=== PATIENT | male | born 1985 | race Caucasian/White ===

== ENCOUNTER → 2025-02-02 14:41 | Outpatient (CLI) | payer OTHER, SELFPAY ==
--- NOTE | 2025-02-02 14:44 | DI.RAD.S_ITS ---
PROCEDURE: XR LUMBAR SPINE MIN 4V INDICATIONS: BACK PAIN TECHNIQUE: 5 views of the lumbar spine were acquired, including bilateral oblique views. COMPARISON: None. FINDINGS: Bones: 5 nonrib-bearing vertebrae are present. Degenerative endplate changes and slight loss of disc height at L4-5 and L5-S1 levels are seen. There is normal bony alignment. No vertebral body compression fractures. No suspicious bony lesions. Soft tissues: Overlying bowel gas pattern is normal. No suspicious soft tissue calcifications. Oblique images: No pars defects. No significant bony foraminal stenosis is seen. IMPRESSION: No acute compression fracture or spondylolisthesis. Very mild rightward curvature of lower lumbar spine. No pars defects or significant bony foraminal stenosis. Mild degenerative endplate changes at L4-5 and L5-S1 levels. Dictated by: Jose Dodson M.D. on 02/02/2025 at 15:21 Approved by: Jose Dodson M.D. on 02/02/2025 at 15:22
== END ==
PROVIDERS: Family Provider Family Medicine; PCP Family Medicine; Referring Provider Physical Medicine & Rehabilitation; Visit Provider Physical Medicine & Rehabilitation
DX: M54.59 Other low back pain (principal); M51.369 Other intervertebral disc degeneration, lumbar region without mention of lumbar back pain or lower extremity pain; M51.379 Other intervertebral disc degeneration, lumbosacral region without mention of lumbar back pain or lower extremity pain; M43.8X6 Other specified deforming dorsopathies, lumbar region; M47.816 Spondylosis without myelopathy or radiculopathy, lumbar region; M54.16 Radiculopathy, lumbar region; G89.29 Other chronic pain; M54.12 Radiculopathy, cervical region; F32.A Depression, unspecified; F41.9 Anxiety disorder, unspecified
CPT/HCPCS: 72110; 99214